=== PATIENT | male | born 1995 | race African-American/Black ===

== ENCOUNTER 2022-12-23 20:59 | Emergency (ER) | payer BC ==
[2022-12-23] MEDS ORDERED: Acetaminophen 500 MG TAB ONE (22:44)
[2022-12-23] MEDS ORDERED: Ketorolac Tromethamine 30 MG/ML VIAL ONE (22:44)
[2022-12-23] MEDS ORDERED: Cefepime 2 GM VIAL ONE (22:44)
[2022-12-23 22:50] LABS: #Eosinphils 0.1 thou/uL (0.0-0.7); #Lymphocytes 1.4 thou/uL (1.20-3.40); #Monocytes 1.2 thou/uL (0.11-0.59); #Neutrophils 11.4 thou/uL (1.40-6.50); %Basophils 0.2 % (0.0-1.0); %Lymphocytes 9.7 % (21.0-51.0); %Monocytes 8.4 % (0.0-10.0); %Neutrophils 80.8 % (42.0-75.0); Hemoglobin 12.2 g/dL (14.0-18.0); Mean Corpuscular HGB CONC 33.2 g/dL (32.0-36.0); Mean Corpuscular Hemoglobin 35.3 pg (27.0-31.0); Mean Platelet Volume 6.7 fL (7.4-10.4); Platelet Count 314 10x3/uL (130-400); RBC Distribution Width 11.2 % (11.5-14.5); Red Blood Cell (RBC) Count 3.47 mill/uL (4.70-6.10); White Blood Cell (WBC) Count 14.1 10x3/uL (4.8-10.8)
[2022-12-23 22:54] LABS: Bilirubin Negative (Negative); Blood, Urine Negative (Negative); Clarity Clear (Clear); Glucose, Urine (Dipstick) Normal (Negative); Ketone, Urine Negative (Negative); Leukocyte Negative Leu/uL (Negative); Nitrite Negative (Negative); Protein, Urine (Dipstick) Negative (Neg-Trace); Specific Gravity, Urine 1.019 (1.002-1.036); Urobilinogen Normal mg/dL (Less than 2); pH, Urine 6.5 (5.0-9.0)
[2022-12-23 22:57] LABS: MONO NEGATIVE CONTROL ZONE White (Negative) (White); MONO POSITIVE CONTROL Pink Line (Positive) (PINK/RED); Mononucleosis NEGATIVE (NEGATIVE)
[2022-12-23 23:10] LABS: ALT (SGPT) 10 U/L (8-55); AST (SGOT) 21 U/L (5-34); Albumin 3.9 g/dL (3.5-5.0); Alkaline Phosphatase 98 U/L (40-110); Anion Gap 14 mmol/L (10-20); BUN (Urea Nitrogen) 12 mg/dL (8.9-20.6); Bilirubin, Total 0.3 mg/dL (0.2-1.2); Calc. Creatinine Clearance 0 mL/min (70-130); Calcium 9.1 mg/dL (7.8-10.44); Carbon Dioxide 24 mmol/L (22-29); Chloride 103 mmol/L (98-107); Estimated GFR 125; Globulin 4.2 g/dL (2.4-3.5); Glucose 96 mg/dL (70-105); Potassium 3.8 mmol/L (3.5-5.1); Protein, Total 8.1 g/dL (6.0-8.3); Sodium 137 mmol/L (136-145)
[2022-12-23] MEDS ORDERED: Vancomycin 1 GM/200 ML (FROZEN) BAG ONE (23:54)
[2022-12-23 23:59] LABS: HIV (1/2) Antibody/Antigen Non-Reactive (NonReactive)
[2022-12-24 10:51] LABS: Syphilis Antibody Nonreactive (Nonreactive); Syphilis Antibody Index 0.08 S/CO (<1.00 Non-Reactive)
[2022-12-24 10:56] LABS: Chlam.trachomatis by PCR,Urine Not Detected (NotDetected)
== END 2022-12-24 02:08 | disposition home or self-care (01) ==
LOC: ERS 20:59
DX: R59.0 Localized enlarged lymph nodes (principal); L30.9 Dermatitis, unspecified; D72.829 Elevated white blood cell count, unspecified
CPT/HCPCS: 36415; 71045; 74177; 80053; 81003; 83605; 85025; 86308; 86780; 87040; 87389; 87491; 87591; 96365; 96367; 96375; J0692; J1885; J3370-JW

== ENCOUNTER 2025-01-05 15:43 | Emergency (ER) | payer SELFPAY ==
[2025-01-05] MEDS ORDERED: Dexamethasone 10 MG/ML VIAL ONE (17:21)
== END 2025-01-05 17:45 | disposition home or self-care (01) ==
LOC: ERS 15:43
DX: J02.0 Streptococcal pharyngitis (principal); F17.210 Nicotine dependence, cigarettes, uncomplicated; F17.290 Nicotine dependence, other tobacco product, uncomplicated
CPT/HCPCS: 87428; 87430; 99283; J1100

== ENCOUNTER 2025-09-26 08:36 | Emergency (ER) | payer SELFPAY ==
[2025-09-26] MEDS ORDERED: Dexamethasone 10 MG/ML VIAL ONE (10:21)
== END 2025-09-26 10:50 | disposition home or self-care (01) ==
LOC: ERS 08:36
DX: J02.9 Acute pharyngitis, unspecified (principal); F17.210 Nicotine dependence, cigarettes, uncomplicated; F17.290 Nicotine dependence, other tobacco product, uncomplicated
CPT/HCPCS: 87081; 87430; J1100